=== PATIENT | male | born 1985 | race Two or more races ===

== ENCOUNTER → 2021-03-17 12:51 | Outpatient (CLI) | payer OTHER, SELFPAY ==
[2021-03-17 12:55] LABS: Coronavirus 19, PCR Not Detected (NotDetected); Influenza A, PCR Not Detected (NotDetected); Influenza B, PCR Not Detected (NotDetected)
== END ==
PROVIDERS: Visit Provider Internal Medicine Pulmonary Disease
DX: Z20.822 Contact with and (suspected) exposure to COVID-19 (principal)
CPT/HCPCS: C9803; U0003; U0005

== ENCOUNTER → 2021-05-13 10:03 | Outpatient (CLI) | payer OTHER, SELFPAY ==
--- NOTE | 2021-05-13 10:08 | XR_ITS ---
PROCEDURE: XR HAND RT MIN 3V CLINICAL INDICATION: PAIN COMPARISON: No exams were available for comparison FINDINGS: There is a spiral concentrically nondisplaced fracture of the proximal aspect of the 4th metacarpal. The remaining metacarpals in all of phalanges appear intact. There is mild diffuse soft tissue swelling of the hand. There are no foreign bodies. The distal radius and ulna appear normal and the carpal bones all appear intact. Other findings:None. IMPRESSION: Spiral oblique fracture proximal 4th metacarpal Dictated by: Dr. Cal Taveras MD 05/13/2021 13:14 Dr. Cal Taveras MD in [place] 05/13/2021 13:14
== END ==
PROVIDERS: Visit Provider Internal Medicine Pulmonary Disease
DX: S62.304A Unspecified fracture of fourth metacarpal bone, right hand, initial encounter for closed fracture (principal)
CPT/HCPCS: 73130

== ENCOUNTER → 2021-05-16 09:27 | Outpatient (CLI) | payer OTHER, SELFPAY ==
--- NOTE | 2021-05-16 09:30 | XR_ITS ---
PROCEDURE: XR HAND RT MIN 3V CLINICAL INDICATION: 4th MC fx, do not remove splint COMPARISON: CR XR HAND RT MIN 3V from 05/09/2021 FINDINGS: Studies obtained through a splint. Nondisplaced comminuted fracture proximal shaft of the 4th metacarpal once again noted. There remains good alignment. No callus formation. Other findings:None. IMPRESSION: Good alignment status post splinting 4th metacarpal fracture Dictated by: Boris Zheng MD 05/16/2021 10:26 Boris Zheng MD in [place] 05/16/2021 10:26
== END ==
PROVIDERS: Visit Provider Orthopaedic Surgery
DX: S62.304A Unspecified fracture of fourth metacarpal bone, right hand, initial encounter for closed fracture (principal)
CPT/HCPCS: 73130

== ENCOUNTER → 2021-06-02 13:49 | Outpatient (CLI) | payer OTHER, SELFPAY ==
[2021-06-02 13:59] LABS: Coronavirus 19, PCR Not Detected (NotDetected); Influenza A, PCR Not Detected (NotDetected); Influenza B, PCR Not Detected (NotDetected)
== END ==
PROVIDERS: Visit Provider Nurse Practitioner
DX: Z20.822 Contact with and (suspected) exposure to COVID-19 (principal)
CPT/HCPCS: C9803; U0003; U0005

== ENCOUNTER → 2021-06-30 09:27 | Outpatient (CLI) | payer OTHER, SELFPAY ==
[2021-06-30 09:48] LABS: Basophils # 0.1 K/mm3 (0-0.2); Basophils % 1.7 % (0.1-2.0); Eosinophils # 0.1 K/mm3 (0.0-0.4); Eosinophils % 2.4 % (0.1-12.0); Hematocrit 49.7 % (42.0-52.0); Hemoglobin 16.5 g/dL (14.1-18.0); Lymphocytes # 2.5 K/mm3 (0.7-4.5); Lymphocytes % 43.1 % (10-50); Mean Corpuscular HGB Conc 33.2 g/dL (31.8-35.4); Mean Corpuscular Hemoglobin 29.2 pg (27.0-31.2); Mean Corpuscular Volume 87.8 fl (80-94); Mean Platelet Volume 8.8 fl (7.4-10.4); Monocytes # 0.3 K/mm3 (0.1-1.0); Monocytes % 4.7 % (1.7-9.3); Neutrophils # 2.8 K/mm3 (1.8-7.8); Neutrophils % 48.1 % (37.0-80.0); Platelet Count 205 K/mm3 (142-424); Red Blood Count 5.66 M/mm3 (4.60-6.20); Red Cell Distribution Width 12.8 % (11.5-17.5); White Blood Count 5.9 K/mm3 (4.8-10.8)
[2021-06-30 10:10] LABS: Erythrocyte Sedimentation Rate 2 mm/hr (0-15)
[2021-06-30 10:20] LABS: Hemoglobin A1C 6.1 % (4.0-6.0)
[2021-06-30 10:48] LABS: Chloride 102 mmol/L (98-107); Potassium 4.5 mmoL/L (3.5-5.1); Sodium 139 mmol/L (136-145)
[2021-06-30 10:51] LABS: Alanine Aminotransferase 55 U/L (12-78); Albumin Level 4.6 g/dl (3.5-5.0); Albumin/Globulin Ratio 1.8 (1.1-1.8); Alkaline Phosphatase 52 U/L (38-126); Anion Gap 12.5 mEq/L (5-15); Aspartate Amino Transferase 44 U/L (17-59); Bilirubin,Total 0.7 mg/dl (0.2-1.3); Blood Urea Nitrogen 12 mg/dl (9-20); Calcium 9.9 mg/dl (8.4-10.2); Carbon Dioxide 29 mmol/L (22.0-30.0); Cholesterol 276 mg/dl (140-200); Estimated Glomerular Filt Rate 109 ml/min (>60); GFR (African American) 132 ML/MIN (>60); Globulin 2.5 g/dL (1.3-3.2); Glucose 93 mg/dl (74-100); Total Protein,Serum 7.1 g/dl (6.3-8.2); Triglycerides 153 mg/dl (30-150); VLDL Cholesterol 31 mg/dL (0-40)
[2021-06-30 10:52] LABS: Chol/HDL Ratio 4.6 (1-3.5); HDL Cholesterol 60 mg/dl (40-60)
[2021-06-30 10:57] LABS: C-Reactive Protein 0.5 mg/L (0-4)
[2021-06-30 11:22] LABS: Thyroid Stimulating Hormone 1.75 uIU/mL (0.465-4.68)
[2021-07-05 15:11] LABS: Strongyloides IgG Antibody Negative (Negative)
[2021-07-06 19:08] LABS: D001-IgE D pteronyssinus <0.10 kU/L (Class 0); D002-IgE D farinae <0.10 kU/L (Class 0); E001-IgE Cat Dander <0.10 kU/L (Class 0); E005-IgE Dog Dander <0.10 kU/L (Class 0); E072-IgE Mouse Urine <0.10 kU/L (Class 0); G002-IgE Bermuda Grass <0.10 kU/L (Class 0); G006-IgE Timothy Grass <0.10 kU/L (Class 0); I006-IgE Cockroach, German <0.10 kU/L (Class 0); Immunoglobulin E, Total 93 IU/mL (6-495); M001-IgE Penicillium chrysogen <0.10 kU/L (Class 0); M002-IgE Cladosporium herbarum <0.10 kU/L (Class 0); M003-IgE Aspergillus fumigatus <0.10 kU/L (Class 0); M006-IgE Alternaria alternata <0.10 kU/L (Class 0); T001-IgE Maple/Box Elder <0.10 kU/L (Class 0); T003-IgE Common Silver Birch <0.10 kU/L (Class 0); T006-IgE Cedar, Mountain <0.10 kU/L (Class 0); T007-IgE Oak, White <0.10 kU/L (Class 0); T008-IgE Elm, American <0.10 kU/L (Class 0); T010-IgE Walnut <0.10 kU/L (Class 0); T011-IgE Maple Leaf Sycamore <0.10 kU/L (Class 0); T014-IgE Cottonwood <0.10 kU/L (Class 0); T015-IgE Ash, White <0.10 kU/L (Class 0); T022-IgE Pecan, Hickory <0.10 kU/L (Class 0); T070-IgE White Mulberry <0.10 kU/L (Class 0); W001-IgE Ragweed, Short <0.10 kU/L (Class 0); W011-IgE Thistle, Russian <0.10 kU/L (Class 0); W014-IgE Pigweed, Common <0.10 kU/L (Class 0); W018-IgE Sheep Sorrel <0.10 kU/L (Class 0)
== END ==
PROVIDERS: Visit Provider Internal Medicine Pulmonary Disease
DX: Z00.00 Encounter for general adult medical examination without abnormal findings (principal); R21 Rash and other nonspecific skin eruption; Z83.3 Family history of diabetes mellitus; J45.909 Unspecified asthma, uncomplicated; R06.00 Dyspnea, unspecified
CPT/HCPCS: 36415; 80053; 80061; 82785; 83036; 84443; 85025; 85651; 86003; 86140; 86682

== ENCOUNTER → 2022-03-01 13:27 | Outpatient (CLI) | payer OTHER, SELFPAY ==
--- NOTE | 2022-03-01 13:47 | XR_ITS ---
FINAL REPORT CLINICAL HISTORY: right ankle pain FINDINGS: RIGHT ANKLE: Three views of the right ankle were obtained. There is no acute fracture or dislocation. The joint spaces and mortise are intact. There is no soft tissue abnormality. IMPRESSION: No acute process. Reviewed, Interpreted and Dictated by Ricardo Younger III, MD Transcribed by Wayne Cunha Authenticated and [facility]
== END ==
PROVIDERS: PCP Internal Medicine; Visit Provider Orthopaedic Surgery
DX: M25.571 Pain in right ankle and joints of right foot (principal)
CPT/HCPCS: 73610

== ENCOUNTER 2022-04-11 15:42 | Outpatient (RCR) | payer OTHER, SELFPAY | END 2022-04-11 16:45 | disposition home or self-care (01) | LOC: PT 15:42 | PROVIDERS: Visit Provider Internal Medicine Pulmonary Disease | DX: M79.671 Pain in right foot (principal); S93.601A Unspecified sprain of right foot, initial encounter | CPT/HCPCS: 97760 ==

== ENCOUNTER → 2022-07-07 11:17 | Outpatient (CLI) | payer OTHER, SELFPAY ==
[2022-07-07 12:12] LABS: Coronavirus 19, PCR Not Detected (NotDetected); Influenza A, PCR Not Detected (NotDetected); Influenza B, PCR Not Detected (NotDetected)
== END ==
PROVIDERS: PCP Emergency Medicine; Visit Provider Internal Medicine Adolescent Medicine
DX: Z20.822 Contact with and (suspected) exposure to COVID-19 (principal)
CPT/HCPCS: C9803; U0003; U0005

== ENCOUNTER → 2023-01-01 08:10 | Outpatient (CLI) | payer OTHER, SELFPAY ==
--- NOTE | 2023-01-01 08:11 | CT_ITS ---
FINAL REPORT TECHNIQUE: Thin section axial CT images with coronal and sagittal reformats were performed through neck after the administration of IV contrast. This study was performed with techniques to keep radiation doses as low as reasonably achievable, (ALARA). CLINICAL HISTORY: tmj pain lt side FINDINGS: There is no adenopathy or mass lesion present. The thyroid is unremarkable. Limited images of the lung apices are unremarkable. No acute osseous abnormality is identified. IMPRESSION: No acute process. Reviewed, Interpreted and Dictated by Ricardo Younger III, MD Transcribed by Marilyn Lubin Authenticated and [facility]
== END ==
PROVIDERS: PCP Emergency Medicine; Visit Provider Nurse Practitioner
DX: M26.642 Arthritis of left temporomandibular joint (principal)
CPT/HCPCS: 70491; Q9967

== ENCOUNTER → 2023-01-12 12:32 | Outpatient (CLI) | payer OTHER, SELFPAY ==
[2023-01-13 10:19] LABS: Measles Antibodies, IgG >300.0 AU/mL (Immune >16.4)
[2023-01-13 13:09] LABS: Hep A Ab, Total Positive (Negative); Hep B Core Ab, Total Negative (Negative); Hep B Surface Ab, Qual Reactive (.)
== END ==
PROVIDERS: PCP Nurse Practitioner Family; Visit Provider Nurse Practitioner Family
DX: M26.649 Arthritis of unspecified temporomandibular joint (principal)
CPT/HCPCS: 36415; 86704; 86706; 86708; 86735; 86762; 86765